=== PATIENT | female | born 1985 | race African-American/Black ===

== ENCOUNTER 2023-12-11 16:31 | Emergency (ER) | payer MEDICAID ==
[~2023-12-11] VITALS: Ht 162.6 cm; Wt 70.3 kg
[2023-12-11 16:35] VITALS: BP 156/91; PULSE 100; TEMP 98.7; O2SAT 100
[2023-12-11] MEDS ORDERED: CETI10CA2 MT (17:28)
== END 2023-12-11 18:17 | disposition home or self-care (01) ==
LOC: ER 16:31
DX: R51.9 Headache, unspecified (principal); J30.9 Allergic rhinitis, unspecified; Z88.5 Allergy status to narcotic agent; Z88.6 Allergy status to analgesic agent; Z98.890 Other specified postprocedural states
CPT/HCPCS: 81025; 99282

== ENCOUNTER 2024-02-29 16:41 | Emergency (ER) | payer MEDICAID ==
[~2024-02-29] VITALS: Ht 162.6 cm; Wt 69.0 kg
[~2024-02-29 16:41] MED LIST: CETI10CA2 MT
[2024-02-29 16:57] VITALS: O2SAT 98
[2024-02-29] MEDS ORDERED: LORA10CA MT (19:13)
[2024-02-29] MEDS ORDERED: FLUT9.9S BOTHNSTRLS (19:13)
[2024-02-29 19:39] VITALS: BP 139/98; PULSE 80; RESP 18; TEMP 37.00296; O2SAT 98
== END 2024-02-29 19:41 | disposition home or self-care (01) ==
LOC: ER 16:41
DX: H92.02 Otalgia, left ear (principal); J45.909 Unspecified asthma, uncomplicated; Z88.5 Allergy status to narcotic agent; Z88.6 Allergy status to analgesic agent; Z98.890 Other specified postprocedural states
CPT/HCPCS: 99281

== ENCOUNTER 2024-06-11 08:51 | Emergency (ER) | payer MEDICAID ==
[~2024-06-11] VITALS: Ht 162.6 cm; Wt 68.0 kg
[~2024-06-11 08:51] MED LIST changes: +FLUT9.9S BOTHNSTRLS; +LORA10CA MT
[2024-06-11 08:56] VITALS: O2SAT 100
[2024-06-11 09:18] VITALS: TEMP 37.3; O2SAT 100
[2024-06-11 13:25] LABS: CLARITY URINE CLEAR (CLEAR); COLOR URINE YELLOW (YELLOW); GLUCOSE URINE NEGATIVE (NEGATIVE); KETONES URINE NEGATIVE (NEGATIVE); LEUKOCYTE ESTERASE URINE 2+ (NEGATIVE); NITRITE URINE NEGATIVE (NEGATIVE); OCCULT BLOOD URINE 2+ (NEGATIVE); PH URINE 5.5 (4.5-8.0); PROTEIN URINE 1+ (NEGATIVE); SPECIFIC GRAVITY URINE 1.019 (1.005-1.030); UROBILINOGEN URINE 0.2 E.U./dL (0.2-1.0)
[2024-06-11 13:45] LABS: BACTERIA URINE 3+; SQUAMOUS EPITHELIAL CELL URINE 2+ /lpf (RARE/1+); WBC URINE 25-50 /hpf (0-2); YEAST URINE NONE SEEN
[2024-06-11 14:05] VITALS: BP 145/104; PULSE 100; RESP 16
[2024-06-11] MEDS: IBUPROFEN 400MG TABLET PO ONE (14:05)
[2024-06-11] MEDS ORDERED: NITR-87 MT (14:12)
[2024-06-11 16:43] LABS: BASOPHILS % 0.6 % (0.0-2.0); EOSINOPHILS % 0.8 % (0.0-5.0); HEMATOCRIT. 34.1 % (36.0-48.0); HEMOGLOBIN. 10.9 g/dL (12.0-16.0); LYMPHOCYTES % 21.8 % (20.0-50.0); MEAN CORPUSCULAR HEMOGLOBIN 28.3 pg (28.0-32.0); MEAN CORPUSCULAR VOLUME 88.6 fL (81.0-99.0); MEAN PLATELET VOLUME 8.6 fl (7.4-10.4); MONOCYTES % 9.8 % (2.0-8.0); PLATELET 270 x1000/uL (130-400); RED BLOOD CELL COUNT 3.85 mill/uL (4.2-5.4); RED CELL DISTRIBUTION WIDTH 14.5 % (11.6-14.6); WHITE BLOOD COUNT 4.1 x1000/uL (4.5-11.0)
[2024-06-11 16:52] LABS: CARBON DIOXIDE 22 mEq/L (21-32); CHLORIDE 106 mEq/L (98-107); POTASSIUM 3.8 mEq/L (3.5-5.1); SODIUM 139 mEq/L (136-145)
[2024-06-11 16:53] LABS: CALCIUM 9.2 mg/dL (8.7-10.4)
[2024-06-11] MEDS ORDERED: IBUP-2028 MT (16:56)
[2024-06-11 16:58] LABS: CREATININE 0.8 mg/dL (0.6-1.0); GLUCOSE 82 mg/dL (70-105); UREA NITROGEN BLOOD 8 mg/dL (9-23)
[2024-06-11 16:59] LABS: ALANINE AMINOTRANSFERASE 19 IU/L (10-49)
[2024-06-11 17:00] LABS: ALBUMIN 4.3 g/dL (3.2-4.8); ASPARTATE AMINOTRANSFERASE 21 IU/L (<34); BILIRUBIN TOTAL 0.5 mg/dL (0.1-1.0); PROTEIN TOTAL 7.6 g/dL (6.0-8.3)
== END 2024-06-11 17:21 | disposition home or self-care (01) ==
LOC: ER 08:51
DX: B34.9 Viral infection, unspecified (principal); J45.909 Unspecified asthma, uncomplicated; Z28.39 Other underimmunization status; Z88.5 Allergy status to narcotic agent; Z98.890 Other specified postprocedural states; R82.4 Acetonuria
CPT/HCPCS: 36415; 80053; 81003; 81025; 85025; 87077; 87186; 99283